=== PATIENT | female | born 1940 | race African-American/Black ===

== ENCOUNTER → 2016-08-22 | Outpatient (CLI) | payer BC ==
[2015-07-27 11:00] VITALS: BP 116/64
[~2016-08-22] MED LIST: AMLO5TAB2 PO; ASPI325T4 PO; ATORVASTATIN CA80 MG PO; BUME1TAB PO; CARV3.12 PO; ESOM40CA PO; FURO40TA4 PO; GABA-586 PO; HYDR-2678 PO; HYDR-2762 PO; IPRA3AMP IH; ISOS30TA4 PO; METO-269 PO; METO2.5T PO; NEBULIZER; NITR0.4T SL; OXYGEN; POLY17PO29 PO; POTA20TA12 PO; PRAS10TA9 PO; SPIR25TA3 PO; TEMA30CA PO; TIZA4CAP PO
--- NOTE | 2016-08-22 12:33 | RAD ---
APPROVED REPORT Patient Location: OUT-PATIENT Laterality:Unilateral Right Indications rt groin pain Findings Frias scale images of the right groin reveal no evidence of masses or fluid collections. Color Doppler of the right common femoral artery and vein do not reveal any evidence of communication . No pseudoaneurysm or aneurysm noted. Critical Notification Critical Value: No <Conclusion> No evidence of pseudoaneurysm or abnormalities noted on limited right groin ultrasound examination.
== END | disposition home or self-care (01) ==
LOC: US 12:25
PROVIDERS: ATTEND Internal Medicine Cardiovascular Disease
DX: I25.10 Atherosclerotic heart disease of native coronary artery without angina pectoris (principal); R10.31 Right lower quadrant pain
CPT/HCPCS: 76882

== ENCOUNTER → 2017-07-29 | Outpatient (CLI) | payer BC, OTHER | END | disposition home or self-care (01) | LOC: ECHO 10:02 | DX: I25.10 Atherosclerotic heart disease of native coronary artery without angina pectoris (principal); I27.20 Pulmonary hypertension, unspecified; I36.1 Nonrheumatic tricuspid (valve) insufficiency | CPT/HCPCS: 93306 ==